=== PATIENT | male | born 1960 | race Hispanic/Latino ===

== ENCOUNTER 2022-04-08 15:21 | Outpatient (CLI) | payer BC | END 2022-04-08 15:22 | disposition home or self-care (01) | LOC: LABHHL 15:21 | PROVIDERS: ATTEND Otolaryngology Sleep Medicine | DX: J34.2 Deviated nasal septum (principal); J32.9 Chronic sinusitis, unspecified; J34.3 Hypertrophy of nasal turbinates | CPT/HCPCS: 88304 ==